=== PATIENT | female | born 1975 | race African-American/Black ===

== ENCOUNTER 2021-02-05 13:51 | Emergency (ER) | payer MEDICAID ==
[~2021-02-05] VITALS: Ht 154.9 cm; Wt 61.2 kg
--- NOTE | 2021-02-05 14:09 | NUR ---
[email or web address], medical screening exam in progress
[2021-02-05] MEDS ORDERED: LORAZEPAM 2 MG/1 ML VIAL IV ONE (14:30)
[2021-02-05] MEDS ORDERED: LORAZEPAM 2 MG/1 ML VIAL ONE (14:41)
[2021-02-05 14:56] LABS: HEMATOCRIT 39.3 % (31.2-41.9); MEAN CORPUSCULAR HEMOGLOBIN 34.6 uug (24.7-32.8); MEAN CORPUSCULAR VOLUME 98.8 fL (75.5-95.3); PLATELET COUNT (AUTO) 295 K/uL (179-408)
[2021-02-05 14:59] LABS: CARBON DIOXIDE 24 mmol/L (21-32); CHLORIDE 100 mmol/L (98-107); CREATININE 0.9 mg/dL (0.6-1.3); GLUCOSE 123 mg/dL (74-106); POTASSIUM 3.4 mmol/L (3.5-5.1); UREA NITROGEN, BLOOD 13 mg/dL (7-18)
[2021-02-05 15:01] LABS: ETHANOL < 3 MG/DL (0-0)
--- NOTE | 2021-02-05 15:41 | NUR ---
Patient said that she feels so much better, for results & [email or web address] time.
--- NOTE | 2021-02-05 16:11 | NUR ---
IV removed. Catheter intact and site benign. Pressure and 4x4 gauze applied to site. No bleeding noted. Patient discharged to home in stable condition. Written and verbal after care instructions given to patient and adult daughter. Patient and family verbalized understanding and compliance of instructions. Stressed follow up with primary doctor or return to ER for worsening s/s.
== END 2021-02-05 16:12 | disposition home or self-care (01) ==
LOC: EDBD 13:51 → ER 13:51
DX: R00.2 Palpitations (principal); R06.02 Shortness of breath; Z20.822 Contact with and (suspected) exposure to COVID-19; G47.00 Insomnia, unspecified; R03.0 Elevated blood-pressure reading, without diagnosis of hypertension
CPT/HCPCS: 36415; 71045; 80048; 80320; 84484; 85025; 87426; 93005; 96374; 99285; J2060; 70030-TC; A4663; G0480

== ENCOUNTER 2021-05-24 06:17 | Emergency (ER) | payer SELFPAY ==
[~2021-05-24] VITALS: Ht 152.4 cm; Wt 59.9 kg
[~2021-05-24 06:17] MED LIST: CHLO25CA22 PO; TRAZ-257 PO
--- NOTE | 2021-05-24 06:30 | NUR ---
PT AMBULATED TO ER C/O "RAPID HEART RATE" 3 HOURS [employer]. PT A/O X3, NO SOB OR LABORED BREATHING, DENIES CP/PRESSURE. NO GI/ DISTRESS.
--- NOTE | 2021-05-24 06:39 | NUR ---
DR. FORDE AT BEDSIDE, MSE IN PROGRESS.
[2021-05-24] MEDS ORDERED: IV NORMAL SALINE 1000 ML BAG IV ONE (06:45)
[2021-05-24 07:05] LABS: HEMATOCRIT 41.2 % (31.2-41.9); MEAN CORPUSCULAR HEMOGLOBIN 33.4 uug (24.7-32.8); MEAN CORPUSCULAR VOLUME 97.2 fL (75.5-95.3); PLATELET COUNT (AUTO) 328 K/uL (179-408)
--- NOTE | 2021-05-24 07:09 | NUR ---
REPORT GIVEN TO JOSE [place].
[2021-05-24 07:15] LABS: CREATININE 0.8 mg/dL (0.6-1.3); POTASSIUM 3.9 mmol/L (3.5-5.1)
--- NOTE | 2021-05-24 07:15 | NUR ---
Patient is resting comfortably in bed with eyes closed, NAD noted.
[2021-05-24 07:22] LABS: BILIRUBIN,DIRECT 0.1 mg/dL (0.0-0.2); BILIRUBIN,TOTAL 0.5 mg/dL (0.2-1.0)
--- NOTE | 2021-05-24 08:46 | NUR ---
Dr Whitaker at the bedside for re-eval using trasnlation phone.
[2021-05-24] MEDS ORDERED: LORAZEPAM 2 MG/1 ML VIAL ONE (08:57)
[2021-05-24] MEDS ORDERED: LORAZEPAM 2 MG/1 ML VIAL IV ONE (09:00)
--- NOTE | 2021-05-24 10:02 | NUR ---
PT states feeling so much better and feels OK to go home.
[2021-05-24 10:28] VITALS: BP 121/60
--- NOTE | 2021-05-24 10:33 | NUR ---
IV removed. Catheter intact and site benign. Pressure and 4x4 gauze applied to site. No bleeding noted.
--- NOTE | 2021-05-24 10:34 | NUR ---
Patient discharged to home in stable condition. Written and verbal after care instructions given. Patient verbalizes understanding of instructions. Stressed follow up or return to ER for worsening s/s.
== END 2021-05-24 10:34 | disposition home or self-care (01) ==
LOC: ER 06:19
DX: R00.2 Palpitations (principal); E03.9 Hypothyroidism, unspecified; R94.31 Abnormal electrocardiogram [ECG] [EKG]; Z87.891 Personal history of nicotine dependence
CPT/HCPCS: 36415; 71045; 80048; 80076; 84443; 84484 ×2; 85025; 85379; 93005 ×2; 96361; 96374; 99285; J2060; A4663; J7040

== ENCOUNTER 2022-02-05 08:41 | Emergency (ER) | payer BC ==
[~2022-02-05] VITALS: Ht 152.4 cm; Wt 59.9 kg
--- NOTE | 2022-02-05 09:12 | NUR ---
[email or web address], medical screening exam in progress
[2022-02-05] MEDS ORDERED: DIAZEPAM 10 MG/2 ML DISP.SYRIN IV ONE (09:15)
[2022-02-05] MEDS ORDERED: IV NORMAL SALINE 1000 ML BAG IV ONE (09:15)
[2022-02-05] MEDS ORDERED: FAMOTIDINE. 20 MG/2 ML VIAL IV ONE ×2 (09:15→09:26)
[2022-02-05] MEDS ORDERED: CHLORDIAZEPOXIDE HCL 25 MG CAPSULE PO ONE (09:15)
[2022-02-05] MEDS ORDERED: CHLORDIAZEPOXIDE HCL 25 MG CAPSULE ONE (09:26)
[2022-02-05] MEDS ORDERED: DIAZEPAM 10 MG/2 ML DISP.SYRIN ONE (09:26)
[2022-02-05 09:32] LABS: MEAN CORPUSCULAR HEMOGLOBIN 33.4 uug (24.7-32.8); MEAN CORPUSCULAR VOLUME 99.3 fL (75.5-95.3); PLATELET COUNT (AUTO) 282 K/uL (179-408)
[2022-02-05 09:40] LABS: CARBON DIOXIDE 24 mmol/L (21-32); CHLORIDE 97 mmol/L (98-107); CREATININE 0.8 mg/dL (0.6-1.3); GLUCOSE 142 mg/dL (74-106); POTASSIUM 3.9 mmol/L (3.5-5.1); UREA NITROGEN, BLOOD 11 mg/dL (7-18)
[2022-02-05 09:48] LABS: ALANINE AMINOTRANSFERASE 33 U/L (14-59); ALKALINE PHOSPHATASE 59 U/L (50-136); ASPARTATE AMINOTRANSFERASE 27 U/L (15-37); BILIRUBIN,DIRECT 0.2 mg/dL (0.0-0.2); BILIRUBIN,TOTAL 0.4 mg/dL (0.2-1.0); LIPASE 65 U/L (73-393); TOTAL PROTEIN, SERUM 8.9 g/dL (6.4-8.2)
[2022-02-05 10:43] LABS: *BILIRUBIN,URIN NEGATIVE (NEGATIVE); *BLOOD, URINE 1+ (NEGATIVE); *CLARITY,URINE CLEAR (CLEAR); *COLOR,URINE YELLOW (YELLOW); *KETONES,URINE NEGATIVE (NEGATIVE); *UROBILINOGEN,URINE 0.2 E.U./dl (NORMAL); LEUKOCYTE ESTERASE ,URINE TRACE (NEGATIVE); NITRITE, URINE NEGATIVE (NEGATIVE); UGLUCOSE NEGATIVE (NEGATIVE)
--- NOTE | 2022-02-05 10:50 | NUR ---
Patient is resting comfortably on gurney with eyes closed, NAD.
[2022-02-05 10:54] LABS: *URINE HCG, QUAL NEG (NEGATIVE)
[2022-02-05] MEDS ORDERED: ACETAMINOPHEN 325 MG TABLET PO ONE (11:15)
[2022-02-05] MEDS ORDERED: ACETAMINOPHEN 325 MG TABLET ONE (11:33)
--- NOTE | 2022-02-05 11:41 | NUR ---
IV removed. Catheter intact and site benign. Pressure and 4x4 gauze applied to site. No bleeding noted.
[2022-02-05 17:23] LABS: BACTERIA,URINE RARE /HPF (NONE SEEN); SQUAMOUS EPITHELIAL CELL,UR MODERATE /HPF (NONE SEEN)
== END 2022-02-05 11:43 | disposition home or self-care (01) ==
LOC: ER 08:41
DX: F41.9 Anxiety disorder, unspecified (principal); U07.1 COVID-19; R51.9 Headache, unspecified; F10.239 Alcohol dependence with withdrawal, unspecified; Z87.891 Personal history of nicotine dependence; E03.9 Hypothyroidism, unspecified; E78.00 Pure hypercholesterolemia, unspecified
CPT/HCPCS: 99285; 96374; 71045; 87426; 80076; 80048; 81001; 84703; 83690; 84443; 85025; 87400; 84484; 36415; 93005; J3360; J3490; J7040; A4663

== ENCOUNTER 2022-10-13 05:08 | Emergency (ER) | payer BC ==
[~2022-10-13] VITALS: Ht 162.6 cm; Wt 61.2 kg
[2022-10-13 05:51] LABS: BASOPHILS % (AUTO) 0.6 % (0.0-2.0); EOSINOPHILS # (AUTO) 0.1 K/uL (0.0-0.7); HEMOGLOBIN 13.8 g/dL (10.9-14.3); LYMPHOCYTES # (AUTO) 2.8 K/uL (0.8-4.8); MEAN CORPUSCULAR HEMOGLOBIN 34.1 uug (24.7-32.8); MEAN CORPUSCULAR HGB CONC 34 g/dL (32.3-35.6); MEAN CORPUSCULAR VOLUME 101.6 fL (75.5-95.3); MONOCYTES # (AUTO) 0.5 K/uL (0.1-1.30); MONOCYTES % (AUTO) 6.9 % (0.0-11.0); NEUTROPHILS # (AUTO) 3.4 K/uL (1.8-8.9); NEUTROPHILS % (AUTO) 50.5 % (38.5-71.5); PLATELET COUNT (AUTO) 158 K/uL (179-408); RED BLOOD CELL COUNT(AUTO) 4.04 MIL/uL (3.63-4.92); RED CELL DISTRIBUTION WIDTH 13.1 % (12.3-17.7); WHITE BLOOD COUNT (AUTO) 6.8 K/uL (3.8-11.8)
[2022-10-13 05:53] LABS: DIFFERENTIAL COMMENT 1
[2022-10-13 05:55] LABS: CALCIUM 8.3 mg/dL (8.5-10.1); CARBON DIOXIDE 22 mmol/L (21-32); CHLORIDE 99 mmol/L (98-107); CREATININE 0.6 mg/dL (0.6-1.3); GLUCOSE 134 mg/dL (74-106); SODIUM SERUM 133 mmol/L (136-145); UREA NITROGEN, BLOOD 12 mg/dL (7-18)
[2022-10-13 05:56] LABS: POTASSIUM 5.4 mmol/L (3.5-5.1)
[2022-10-13 06:26] LABS: *BILIRUBIN,URIN NEGATIVE (NEGATIVE); *BLOOD, URINE 1+ (NEGATIVE); *CLARITY,URINE CLEAR (CLEAR); *COLOR,URINE YELLOW (YELLOW); *KETONES,URINE NEGATIVE (NEGATIVE); *PROTEIN,URINE NEGATIVE (NEGATIVE); *UROBILINOGEN,URINE 0.2 E.U./dl (NORMAL); LEUKOCYTE ESTERASE ,URINE 1+ (NEGATIVE); NITRITE, URINE NEGATIVE (NEGATIVE); PH,URINE 6.5 (5.0-8.0); UGLUCOSE NEGATIVE (NEGATIVE)
[2022-10-13 07:01] LABS: BASOPHILS % (AUTO) 0.4 % (0.0-2.0); EOSINOPHILS % (AUTO) 0.4 % (0.0-7.0); HEMATOCRIT 38.8 % (31.2-41.9); HEMOGLOBIN 13.3 g/dL (10.9-14.3); LYMPHOCYTES # (AUTO) 1.2 K/uL (0.8-4.8); LYMPHOCYTES % (AUTO) 15.6 % (20.5-51.5); MEAN CORPUSCULAR HEMOGLOBIN 34.5 uug (24.7-32.8); MEAN CORPUSCULAR HGB CONC 34 g/dL (32.3-35.6); MEAN CORPUSCULAR VOLUME 100.5 fL (75.5-95.3); MONOCYTES # (AUTO) 0.5 K/uL (0.1-1.30); MONOCYTES % (AUTO) 6.9 % (0.0-11.0); NEUTROPHILS # (AUTO) 5.9 K/uL (1.8-8.9); NEUTROPHILS % (AUTO) 76.7 % (38.5-71.5); PLATELET COUNT (AUTO) 279 K/uL (179-408); RED BLOOD CELL COUNT(AUTO) 3.86 MIL/uL (3.63-4.92); RED CELL DISTRIBUTION WIDTH 12.7 % (12.3-17.7); WHITE BLOOD COUNT (AUTO) 7.7 K/uL (3.8-11.8)
[2022-10-13 07:08] LABS: CALCIUM 9.1 mg/dL (8.5-10.1); CARBON DIOXIDE 25 mmol/L (21-32); CHLORIDE 102 mmol/L (98-107); CREATININE 0.7 mg/dL (0.6-1.3); DIFFERENTIAL COMMENT 1; GLUCOSE 118 mg/dL (74-106); POTASSIUM 3.8 mmol/L (3.5-5.1); SODIUM SERUM 138 mmol/L (136-145); UREA NITROGEN, BLOOD 10 mg/dL (7-18)
[2022-10-13 07:11] LABS: *AMPHETAMINE, URINE NEGATIVE (NEGATIVE); *BARBITURATE, URINE NEGATIVE (NEGATIVE); *BENZODIAZEPINE, URINE NEGATIVE (NEGATIVE); *CANNABINOID, URINE NEGATIVE (NEGATIVE); *COCCAINE, URINE NEGATIVE (NEGATIVE); *OPIATE, URINE NEGATIVE (NEGATIVE); *PHENCYCLIDINE SCREEN,URINE NEGATIVE (NEGATIVE); FENTANYL, URINE NEGATIVE (NEGATIVE)
[2022-10-13 07:13] LABS: ALANINE AMINOTRANSFERASE 17 U/L (14-59); ALBUMIN 3.6 g/dL (3.4-5.0); ALKALINE PHOSPHATASE 36 U/L (50-136); ASPARTATE AMINOTRANSFERASE 12 U/L (15-37); BILIRUBIN,DIRECT 0.2 mg/dL (0.0-0.2); BILIRUBIN,TOTAL 0.9 mg/dL (0.2-1.0); ETHANOL < 3 MG/DL (0-10); TOTAL PROTEIN, SERUM 7.9 g/dL (6.4-8.2)
[2022-10-13 07:22] LABS: THYROID STIMULATING HORMONE 3.619 mIU/mL (0.358-3.740)
[2022-10-13 07:57] LABS: MAGNESIUM 1.8 mg/dL (1.8-2.4)
[2022-10-13 08:09] LABS: PREGNANCY TEST SERUM QUAN < 1 miul/L (0-6)
[2022-10-13 09:00] LABS: BACTERIA,URINE MODERATE /HPF (NONE SEEN); RBC,URINE 0-3 /HPF (0-3); SQUAMOUS EPITHELIAL CELL,UR MODERATE /HPF (NONE SEEN)
[2022-10-13] MEDS ORDERED: LORAZEPAM 2 MG/1 ML VIAL IV ONE (09:00)
[2022-10-13 09:01] LABS: *URINE HCG, QUAL NEGATIVE (NEGATIVE)
[2022-10-13] MEDS ORDERED: LORAZEPAM 2 MG/1 ML VIAL ONE (09:03)
[2022-10-13] MEDS ORDERED: LORAZEPAM 2 MG/1 ML VIAL IM ONE (09:15)
[2022-10-13] MEDS ORDERED: IV NORMAL SALINE 250 ML IV ONE (09:54)
[2022-10-13] MEDS ORDERED: IOHEXOL 350 100 ML INFUS..BTL ONE (09:54)
[2022-10-13] MEDS ORDERED: SWABABLE VALVE TRANSFER SET EA MC ONE (09:54)
[2022-10-13 13:28] VITALS: BP 137/74; TEMP 97.9; O2SAT 97
== END 2022-10-13 13:29 | disposition home or self-care (01) ==
LOC: ER 05:15
DX: R00.2 Palpitations (principal); R10.2 Pelvic and perineal pain; E03.9 Hypothyroidism, unspecified; E78.5 Hyperlipidemia, unspecified; Z87.891 Personal history of nicotine dependence; Z79.899 Other long term (current) drug therapy
CPT/HCPCS: 80076; 80048 ×2; 81001; 84703; 83735; 84443; 85025 ×2; 85379; 85730; 84484 ×2; 84702; 36415; 93005; 71045; 71275; 99285; 96372; 87040; 80320; 80307; J2060; Q9967; A4663; G0480

== ENCOUNTER 2024-05-30 08:45 | Emergency (ER) | payer BC, OTHER ==
[~2024-05-30] VITALS: Ht 152.4 cm; Wt 59.0 kg
[2024-05-30 09:46] LABS: BASOPHILS % (AUTO) 0.8 % (0.0-2.0); EOSINOPHILS # (AUTO) 0.1 K/uL (0.0-0.7); EOSINOPHILS % (AUTO) 1.7 % (0.0-7.0); HEMATOCRIT 38.4 % (31.2-41.9); HEMOGLOBIN 12.9 g/dL (10.9-14.3); LYMPHOCYTES # (AUTO) 1.2 K/uL (0.8-4.8); LYMPHOCYTES % (AUTO) 23.8 % (20.5-51.5); MEAN CORPUSCULAR HEMOGLOBIN 33.9 uug (24.7-32.8); MEAN CORPUSCULAR HGB CONC 34 g/dL (32.3-35.6); MEAN CORPUSCULAR VOLUME 100.7 fL (75.5-95.3); MONOCYTES # (AUTO) 0.4 K/uL (0.1-1.30); MONOCYTES % (AUTO) 7.5 % (0.0-11.0); NEUTROPHILS # (AUTO) 3.3 K/uL (1.8-8.9); NEUTROPHILS % (AUTO) 66.2 % (38.5-71.5); PLATELET COUNT (AUTO) 270 K/uL (179-408); RED BLOOD CELL COUNT(AUTO) 3.81 MIL/uL (3.63-4.92); RED CELL DISTRIBUTION WIDTH 12.8 % (12.3-17.7)
[2024-05-30 09:57] LABS: CARBON DIOXIDE 25 mmol/L (21-32); CHLORIDE 104 mmol/L (98-107); CREATININE 0.8 mg/dL (0.6-1.3); GLUCOSE 109 mg/dL (74-106); POTASSIUM 3.5 mmol/L (3.5-5.1); SODIUM SERUM 137 mmol/L (136-145); UREA NITROGEN, BLOOD 16 mg/dL (7-18)
[2024-05-30 10:02] LABS: DIFFERENTIAL COMMENT 1
[2024-05-30 10:09] LABS: ALANINE AMINOTRANSFERASE 19 U/L (14-59); ALBUMIN 3.7 g/dL (3.4-5.0); ALKALINE PHOSPHATASE 34 U/L (50-136); ASPARTATE AMINOTRANSFERASE 22 U/L (15-37); BILIRUBIN,DIRECT 0.1 mg/dL (0.0-0.2); BILIRUBIN,TOTAL 0.3 mg/dL (0.2-1.0); NT-PRO BNP 64 pg/mL (0-125); TOTAL PROTEIN, SERUM 8.1 g/dL (6.4-8.2)
[2024-05-30] MEDS ORDERED: CYANOCOBALAMIN 1000 MCG/ML VIAL ONE (12:18)
[2024-05-30] MEDS: CYANOCOBALAMIN 1000 MCG/ML VIAL IM ONE (12:23)
[2024-05-30] MEDS ORDERED: SYRI-29 MC (12:37)
[2024-05-30] MEDS ORDERED: CYAN10006 IM (12:37)
[2024-05-30 12:46] VITALS: BP 121/74; TEMP 97.5; O2SAT 100
== END 2024-05-30 12:47 | disposition home or self-care (01) ==
LOC: ER 08:45
DX: R00.0 Tachycardia, unspecified (principal); E53.8 Deficiency of other specified B group vitamins; R07.9 Chest pain, unspecified; Z88.7 Allergy status to serum and vaccine; Z86.79 Personal history of other diseases of the circulatory system; Z86.59 Personal history of other mental and behavioral disorders
CPT/HCPCS: 99285; 71045; 80076; 80048; 82607; 83880; 83735; 85025; 85379; 84484; 36415; 93005; 96372; 82746; J3420; A4606; A4663